=== PATIENT | male | born 1940 | race Caucasian/White ===

== ENCOUNTER 2016-06-22 20:14 | Inpatient (IN) | payer MEDICARE, BC ==
[~2016-06-22] VITALS: Ht 175.3 cm; Wt 83.0 kg
[2016-06-22] MEDS ORDERED: AMLODIPINE BESYL5 MG ORAL (20:20)
[2016-06-22] MEDS ORDERED: LEVOTHYROXINE75 MCG ORAL (20:20)
[2016-06-22] MEDS ORDERED: ASPIRIN81 MG ORAL (20:20)
[2016-06-22] MEDS ORDERED: LEXAPRO20 MG ORAL (20:20)
[2016-06-22] MEDS ORDERED: OMEGA 3 1,0001 EACH PO (20:20)
[2016-06-22] MEDS ORDERED: PRAVACHOL40 MG ORAL (20:20)
[2016-06-22] MEDS ORDERED: DOCUSATE SODIU100 MG ORAL (20:20)
[2016-06-22] MEDS ORDERED: CALCIUM + VITA1 EAC1 PO (20:20)
[2016-06-22] MEDS ORDERED: NABUMETONE500 MG PO (20:20)
[2016-06-22] MEDS ORDERED: CEPHALEXIN250 M2 ORAL (20:20)
[2016-06-22] MEDS ORDERED: GLUCOSAMINE &1 EAC2 PO (20:20)
[2016-06-22] MEDS ORDERED: FLONASE1 SPRAYS NASAL (20:20)
--- NOTE | 2016-06-22 20:38 | Emergency Room Report ---
History of Present Illness General Chief Complaint: Generalized Weakness Source: Patient Present Illness HPI 76 YO M BIBEMS for "weakness". Patient with history of dementia and HTN, DM, HLD, hypothyroid per paperwork. Patient calm, collected. Denies any complaints. Not providing any additional info at this time. Per paperwork, patient on keflex for unknown tx of infection. Allergies: Coded Allergies: No Known Allergies (Unverified , 06/22/16) Patient History Past Medical History: DM, dementia, other - HLD, hypothyroid Past Surgical History: unable to obtain Pertinent Family History: unable to obtain Social History: Denies: alcohol use, drug use, smoking Immunizations: UTD Reviewed Nursing Documentation: PMH: Agreed, PSxH: Agreed Nursing Documentation-PMH Hx Hypertension: Yes Hx Diabetes: Yes Review of Systems All Other Systems: limited - limited d/t age/dementia Physical Exam Vital Signs Date Time Temp Pulse Resp B/P Pulse Ox O2 Delivery O2 Flow Rate FiO2 06/22/16 20:08 98.2 76 18 149/79 90 Room Air Sp02 EP Interpretation: reviewed, normal General Appearance: normal inspection, well appearing, no apparent distress, alert, GCS 15, non-toxic, other - Stoic, hard of hearing Head: normocephalic, atraumatic Eyes: bilateral eye EOMI, bilateral eye PERRL ENT: normal ENT inspection, hearing grossly normal, normal pharynx, no angioedema, normal voice, TMs + canals normal, uvula midline Neck: normal inspection, full range of motion, supple, thyroid normal, no meningismus, no bony tend Respiratory: normal inspection, lungs clear, normal breath sounds, no rhonchi, no respiratory distress, no retraction, no accessory muscle use, no wheezing, speaking full sentences Cardiovascular #1: regular rate, rhythm, no edema Gastrointestinal: normal inspection, normal bowel sounds, non tender, soft, no guarding, no hernia Genitourinary: no CVA tenderness Musculoskeletal: normal inspection, back normal, normal range of motion, Yari' s Sign negative Neurologic: normal inspection, alert, oriented x3, responsive, garment sorter III-XII nml as tested, motor strength/tone normal, speech normal Psychiatric: normal inspection, judgement/insight normal, mood/affect normal Skin: normal inspection, normal color, no rash Lymphatic: normal inspection Medical Decision Making Diagnostic Impression: Primary Impression: Episode of generalized weakness ER Course 76 YO M with weakness. VSS. Afebrile No focal neuro deficits. No systemic symptoms. Patient on Keflex for tx of an unknown infection PLAN Will do septic workup, basic labs, ECG, search for potential cause for infection or metabolic abnormality Endorsed to Dr Hall for ultimate disposition at 930pm Last Vital Signs Date Time Temp Pulse Resp B/P Pulse Ox O2 Delivery O2 Flow Rate FiO2 06/22/16 20:08 98.2 76 18 149/79 90 Room Air VELASQUEZ MCWILLIAMS M.D. Jun 22, 2016 20:38
[2016-06-22 21:15] LABS: BASOPHILS % (AUTO) 1.5 % (0.0-2.0); LYMPHOCYTES % (AUTO) 16.1 % (20.0-45.0); MEAN CORPUSCULAR HEMOGLOBIN 31.3 PG (27.0-31.0); MEAN CORPUSCULAR HGB CONC 32.6 G/DL (32.0-36.0); MEAN CORPUSCULAR VOLUME 96 FL (80-99); MEAN PLATELET VOLUME 7.3 FL (6.5-10.1); MONOCYTES % (AUTO) 10.2 % (1.0-10.0); NEUTROPHILS % (AUTO) 68.1 % (45.0-75.0); PLATELET COUNT 210 K/UL (150-450); RED BLOOD COUNT 4.09 M/UL (4.70-6.10); RED CELL DISTRIBUTION WIDTH 13.3 % (11.6-14.8); WHITE BLOOD COUNT 7.9 K/UL (4.8-10.8)
[2016-06-22 21:19] VITALS: BP 140/65
[2016-06-22 21:27] LABS: ALANINE AMINOTRANSFERASE 10 U/L (3-41); ALBUMIN/GLOBULIN RATIO 1.1 (1.0-2.7); ANION GAP 14 (5-15); ASPARTATE AMINO TRANSFERASE 18 U/L (5-40); CALCIUM 9.3 mg/dL (8.6-10.2); CARBON DIOXIDE 26 mEQ/L (20-30); CHLORIDE 100 mEQ/L (98-107); CREATININE 1.2 mg/dL (0.7-1.2); HEMOLYSIS 13; POTASSIUM 4.2 mEQ/L (3.4-4.9); SODIUM 140 mEQ/L (135-145); TOTAL PROTEIN 5.9 g/dL (6.6-8.7)
[2016-06-22 21:33] LABS: REFLEX LACTIC ACID YES OR NO YES; TROPONIN I 1.35 ng/mL (<=0.30)
[2016-06-22 21:37] LABS: CKMB 3.4 ng/mL (< 6.7)
[2016-06-22 21:39] LABS: APPEARANCE,URINE CLEAR; KETONES,URINE 1+ (NEGATIVE); LEUKOCYTE ESTERASE ,URINE 1+ (NEGATIVE); NITRITE,URINE NEGATIVE (NEGATIVE); PH,URINE 5 (4.5-8.0); PROTEIN,URINE 3+ (NEGATIVE); UROBILINOGEN,URINE NORMAL MG/DL (0.0-1.0)
[2016-06-22 21:42] LABS: ICTOTEST NEGATIVE
[2016-06-22 21:47] LABS: AMORPHOUS SEDIMENT,UR FEW /LPF; BACTERIA,URINE FEW /HPF; RBC,URINE 0-2 /HPF (0 - 0); WBC,URINE 0-2 /HPF (0 - 0)
[2016-06-22] MEDS ORDERED: Heparin 25,000u/D5W 500ml 500 ML IV SCH (22:00)
[2016-06-22] MEDS ORDERED: Heparin 5000 units/ml inj IV ONE (22:00)
[2016-06-22 23:06] VITALS: BP 140/72
[2016-06-23 00:13] VITALS: BP 142/90
[2016-06-23] MEDS ORDERED: Metoprolol 50mg tab ORAL ONE (03:15)
[2016-06-23] MEDS ORDERED: Heparin 25,000u/D5W 500ml 500 ML IV SCH (03:30)
[2016-06-23 04:00] VITALS: BP 128/75
[2016-06-23 05:03] LABS: ALANINE AMINOTRANSFERASE 8 U/L (3-41); ALBUMIN/GLOBULIN RATIO 0.9 (1.0-2.7); ANION GAP 15 (5-15); ASPARTATE AMINO TRANSFERASE 18 U/L (5-40); CALCIUM 8.6 mg/dL (8.6-10.2); CARBON DIOXIDE 23 mEQ/L (20-30); CHLORIDE 104 mEQ/L (98-107); CHOLESTEROL 126 mg/dL (< 200); CHOLESTEROL/HDL RATIO 2.9 (3.3-4.4); HEMOLYSIS 14; LDL CHOLESTEROL (CALC.) 72 mg/dL (60-99); POTASSIUM 3.7 mEQ/L (3.4-4.9); SODIUM 142 mEQ/L (135-145)
[2016-06-23] MEDS: Nitroglycerin 2% oint pkt TOPIC SCH ×4 (06:00→21:20)
[2016-06-23 07:42] LABS: BASOPHILS % (AUTO) 1.3 % (0.0-2.0); EOSINOPHILS % (AUTO) 4.6 % (0.0-3.0); LYMPHOCYTES % (AUTO) 12.2 % (20.0-45.0); MEAN CORPUSCULAR HEMOGLOBIN 31.3 PG (27.0-31.0); MEAN CORPUSCULAR HGB CONC 32.7 G/DL (32.0-36.0); MEAN CORPUSCULAR VOLUME 96 FL (80-99); MEAN PLATELET VOLUME 9.6 FL (6.5-10.1); MONOCYTES % (AUTO) 9.9 % (1.0-10.0); PLATELET COUNT 212 K/UL (150-450); RED BLOOD COUNT 3.86 M/UL (4.70-6.10); RED CELL DISTRIBUTION WIDTH 13.2 % (11.6-14.8); WHITE BLOOD COUNT 7.5 K/UL (4.8-10.8)
[2016-06-23 08:00] VITALS: BP 146/82
[2016-06-23 08:07] LABS: TROPONIN I 1.33 ng/mL (<=0.30)
[2016-06-23] MEDS: Aspirin Baby 81mg ORAL SCH (08:46)
[2016-06-23] MEDS: Docusate 100mg cap ORAL SCH ×2 (08:46→17:41)
[2016-06-23] MEDS: Metoprolol 25mg tab ORAL SCH ×2 (08:46→20:22)
[2016-06-23] MEDS: Flonase Nasal Inhaler 16gm NASAL SCH (08:47)
[2016-06-23] MEDS ORDERED: Cephalexin 250mg Cap ORAL SCH (09:00)
[2016-06-23] MEDS ORDERED: Heparin 5000 units/ml inj IV ONE (10:00)
[2016-06-23] MEDS: Heparin 25,000u/D5W 500ml 500 ML IV SCH ×3 (10:12→21:21)
--- NOTE | 2016-06-23 11:49 | Diagnostic Imaging Report ---
Indications: Shortness of breath Technique: Portable AP chest Findings: Comparison: None Suboptimal inspiration limits evaluation. Cardiac silhouette enlarged. Diffuse bilateral interstitial infiltrates. Blunting of both costophrenic angle suggests pleural effusions. Pulmonary vasculature obscured. Aortic arch calcified. IMPRESSION: Findings most compatible with congestive heart failure Cardiomegaly Aortosclerosis
[2016-06-23] MEDS: NovoLOG Insulin Flexpen SUBQ SCH ×3 (11:57→20:29)
[2016-06-23 12:00] VITALS: BP 125/69
[2016-06-23 12:14] LABS: TROPONIN I 0.99 ng/mL (<=0.30)
--- NOTE | 2016-06-23 12:58 | History and Physical Report ---
DATE OF ADMISSION: 06/22/2016 REASON FOR ADMISSION: Acute UT. HISTORY OF PRESENT ILLNESS: This is a 76-year-old male brought in by ambulance for weakness. The patient with underlying history of dementia and unable to give much in the way in the history. The patient apparently calm and collected, but noted to have a change in condition overall. In the emergency room, the patient was evaluated, was noted to have clinically elevated troponin. The patient denies any chest pain at present. He is significantly confused. He is comfortable at present and had been admitted for further cardiac workup. Cardiology has been notified. The patient as noted medical records as well reviewed. The patient apparently treated with Keflex for unknown reason, the patient appears to be nontoxic. PAST MEDICAL HISTORY: Diabetes, dementia, and hypothyroidism. The patient also with history of hypertension. MEDICATIONS: Reviewed. ALLERGIES: Reviewed SOCIAL HISTORY: Nonsmoker. Nondrinker. The patient is retired, demented, unable to care for his own needs. REVIEW OF SYSTEMS: Review of systems difficult to obtain. The patient is not reliable at present. PHYSICAL EXAMINATION: GENERAL: This is a well-developed male and comfortable, in no distress. VITAL SIGNS: Temperature 97.5 degrees, pulse 66, respirations 24, blood pressure is 146/80, and the patient is on room air. HEENT: Fairly negative. Extraocular movements are grossly intact. Oropharynx is moist. NECK: Supple. No jugular venous distention. LUNGS: Otherwise, clear and symmetric. No rhonchi or wheezes. CARDIAC: Normal S1 and S2. Regular rate and rhythm without murmurs or gallops. ABDOMEN: Soft and nontender. Mildly obese. EXTREMITIES: No cyanosis or clubbing. There is 1+ pitting edema. NEUROLOGIC: Grossly nonfocal, able to move all extremities, able to swallow. Speech is poor. LABORATORY AND DIAGNOSTIC DATA: Lab data reviewed. BUN 34 and creatinine 1. Troponin is 1.35, second 1.33. Albumin is 2.9. The patient Hematology, white count 7.5, hemoglobin 12.1, and hematocrit 36.9. The chest x-ray reviewed. The EKG reviewed. IMPRESSION: 1. Acute myocardial infarction. 2. Elevated troponin. 3. Severe protein-calorie malnutrition. 4. History of hypertension. 5. History of diabetes. 6. History of dementia. 7. Chronic encephalopathy. RECOMMENDATIONS: Serial troponins, nitrate, aspirin, beta-blockers. Continue with home medication. Cardiology evaluation. Monitor clinically for further changes and support as needed. Continue further cardiac workup. Pending evaluation by Cardiology. The patient is otherwise stable for current management at present. Arsh Natarajan M.D. DR: Ruel JOB#: [id number] CC: CLEMENTE
[2016-06-23 16:00] VITALS: BP 131/79
[2016-06-23 19:53] LABS: TROPONIN I 1.06 ng/mL (<=0.30)
[2016-06-23 20:00] VITALS: BP 145/86
[2016-06-23] MEDS ORDERED: Zolpidem 5mg tab ORAL PRN (21:00)
[2016-06-23] MEDS: KCl 10% 20 mEq/15ml liquid NG SCH (22:57)
--- NOTE | 2016-06-23 23:38 | Consultation ---
DATE OF CONSULTATION: 06/22/2016 CARDIOLOGY CONSULTATION REQUESTING PHYSICIAN: Arsh Natarajan M.D. REASON FOR CONSULTATION: Elevated troponin level. HISTORY OF PRESENT ILLNESS: This is a 76-year-old male, who resides in an assisted living facility. He was brought into the emergency room by paramedics for evaluation of weakness. The patient is a poor historian and has an underlying dementia. He did not have any chest pain, shortness of breath noted, or palpitations. PAST MEDICAL HISTORY: Type 2 diabetes mellitus, cerebrovascular disease, hyperlipidemia, hypothyroidism, and hypertension. ALLERGIES: None known. MEDICATIONS: Prior to admission, reviewed and reconciled. SOCIAL HISTORY: No record of smoking or alcohol use. REVIEW OF SYSTEMS: Cannot be reliably obtained from the patient. Pertinent data from other historian is outlined above. PHYSICAL EXAMINATION: GENERAL: The patient is afebrile. VITAL SIGNS: Blood pressure 149/79, pulse 76, and respirations 18. HEENT: Normocephalic and atraumatic. Conjunctivae are pink. Oropharynx is clear. Mucous membranes moist. NECK: Supple. JVP is slightly elevated. LUNGS: Few rales. CARDIAC: Regular rhythm and rate. Normal S1 and increased splitting S2. A 1/6 systolic apical murmur. ABDOMEN: Soft and nontender. No guarding or rebound. EXTREMITIES: Good pulses. Trace dependent edema. NEUROLOGIC: Moderate cognitive impairment but nonfocal with regard to motor examination and sensation. LABORATORY AND DIAGNOSTIC DATA: EKG revealed sinus rhythm with right bundle-branch block. Chest x-ray reveals pulmonary venous congestion/congestive heart failure. Laboratories are notable for potassium 4.2, BUN 36, and creatinine 1.2. Lactic acid is 2.4. Troponin is 1.35. Albumin is 3.2. IMPRESSION: 1. Acute myocardial infarction. 2. Right bundle-branch block. 3. Lactic acidosis. 4. Type 2 diabetes mellitus with hyperglycemia. 5. Acute diastolic congestive heart failure. 6. Prerenal azotemia. 7. Mild protein-calorie malnutrition. 8. Dementia with probable component of delirium. PLAN: 1. Cardiac monitoring. 2. Anti-platelet and anticoagulation. 3. Check lipid panel. 4. Beta-blockade. 5. Titrate antihypertensive regimen. 6. Serial troponin levels. 7. Insulin coverage by sliding scale. 8. We will try to expand database. We will likely proceed with assessment of coronary flow reserve if unless deterioration of condition will warrant more urgent coronary angiography. Dimas Dick M.D. DR: EDUARD JOB#: [id number] CC:
[2016-06-24] VITALS: BP 142/80
--- NOTE | 2016-06-24 00:28 | Progress Note ---
DATE: 06/23/2016 CARDIOLOGY PROGRESS NOTE: SUBJECTIVE: The patient continues to have no complaints of chest pain or shortness of breath. He is confused and withdrawn and is an unreliable historian. He remains on anti-lipid therapy, oral anti-platelet therapy with aspirin, and full anticoagulation with heparin drip. He is also on a beta-yu. OBJECTIVE: VITAL SIGNS: Blood pressure 145/86, heart rate 67, and respiratory rate 17. NECK: Supple. Jugular venous pressure elevated. LUNGS: Few rales. CARDIAC: Regular rhythm and rate. Normal S1 and increased splitting S2. A 1/6 systolic apical murmur. ABDOMEN: Soft. EXTREMITIES: A 1+ dependent edema. LABORATORY DATA: Troponin 1.06. BUN 34, creatinine 1, and potassium 3.7. Albumin 2.9. LDL cholesterol 72. TSH 2.08. IMPRESSION: 1. Acute myocardial infarction. 2. Mild to moderate protein calorie malnutrition. Favorable lipid parameters on statin drug. 3. Dementia with delirium. 4. Acute on chronic diastolic congestive heart failure. PLAN: Await echocardiogram. Diuresis. Titrate antianginal regimen. Add angiotensin-converting enzyme inhibitor. Consider discontinuation of heparin following review of echocardiogram. Trending of natriuretic peptide. Plan to help diuretic regimen. 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 Dimas Dick M.D. DR: Guillermina JOB#: [id number] CC:
[2016-06-24] MEDS ORDERED: Heparin 5000 units/ml inj IV ONE (00:30)
[2016-06-24] MEDS: Heparin 25,000u/D5W 500ml 500 ML IV SCH ×2 (00:37→20:10)
[2016-06-24 04:00] VITALS: BP 121/74
[2016-06-24] MEDS: NovoLOG Insulin Flexpen SUBQ SCH ×4 (06:30→21:19)
[2016-06-24] MEDS: Nitroglycerin 2% oint pkt TOPIC SCH ×3 (06:30→22:14)
[2016-06-24 06:52] LABS: BASOPHILS % (AUTO) 1.2 % (0.0-2.0); EOSINOPHILS % (AUTO) 1.9 % (0.0-3.0); LYMPHOCYTES % (AUTO) 15.7 % (20.0-45.0); MEAN CORPUSCULAR HEMOGLOBIN 32.3 PG (27.0-31.0); MEAN CORPUSCULAR HGB CONC 34.5 G/DL (32.0-36.0); MEAN CORPUSCULAR VOLUME 94 FL (80-99); MONOCYTES % (AUTO) 9.5 % (1.0-10.0); NEUTROPHILS % (AUTO) 71.8 % (45.0-75.0); PLATELET COUNT 229 K/UL (150-450); RED BLOOD COUNT 3.67 M/UL (4.70-6.10); RED CELL DISTRIBUTION WIDTH 12.9 % (11.6-14.8); WHITE BLOOD COUNT 9.5 K/UL (4.8-10.8)
[2016-06-24 07:14] LABS: ALANINE AMINOTRANSFERASE 11 U/L (3-41); ALBUMIN/GLOBULIN RATIO 0.9 (1.0-2.7); ANION GAP 14 (5-15); ASPARTATE AMINO TRANSFERASE 15 U/L (5-40); CALCIUM 8.9 mg/dL (8.6-10.2); CARBON DIOXIDE 24 mEQ/L (20-30); CHLORIDE 104 mEQ/L (98-107); HEMOLYSIS 4; POTASSIUM 4.3 mEQ/L (3.4-4.9); SODIUM 142 mEQ/L (135-145)
[2016-06-24 07:33] LABS: TROPONIN I 0.94 ng/mL (<=0.30)
[2016-06-24 08:00] VITALS: BP 84/64
--- NOTE | 2016-06-24 08:16 | General Progress Note ---
Assessment/Plan Assessment/Plan IMPRESSION: 1. Acute myocardial infarction. 2. Elevated troponin. 3. Severe protein-calorie malnutrition. 4. History of hypertension. 5. History of diabetes. 6. History of dementia. 7. Chronic encephalopathy. PLAN monitor chest xr troponin trend noted cards rx and clearance in CATHERINE ?tele monitor clinically ? cardiac stress impression, plan, and exam edited and reviewed in detail care discussed with RN Subjective Allergies: Coded Allergies: No Known Allergies (Unverified , 06/22/16) Subjective no distress d/w cardiology appreciate care Objective Last 24 Hour Vital Signs Date Time Temp Pulse Resp B/P Pulse Ox O2 Delivery O2 Flow Rate FiO2 06/24/16 06:30 121/74 06/24/16 04:07 75 06/24/16 04:00 97.9 73 22 121/74 94 Nasal Cannula 2.0 06/24/16 00:00 97.4 69 22 142/80 94 Nasal Cannula 2.0 06/23/16 23:48 72 06/23/16 22:18 70 32 92 Facial 2.0 28 06/23/16 21:20 145/68 06/23/16 20:22 66 145/86 06/23/16 20:00 67 06/23/16 20:00 97.9 17 145/86 96 Nasal Cannula 2.0 06/23/16 16:00 97.5 63 16 131/79 92 Nasal Cannula 2.0 06/23/16 16:00 65 06/23/16 14:18 125/69 06/23/16 12:00 97.5 62 19 125/69 93 Nasal Cannula 2.0 06/23/16 12:00 62 06/23/16 08:47 60 146/80 06/23/16 08:46 60 146/80 Intake and Output 06/23/16 06/24/16 19:00 07:00 Intake Total 736.461 ml 328.03 ml Output Total 800 ml Balance 736.461 ml -471.97 ml Intake Oral 500 ml 150 ml IV Total 236.461 ml 178.03 ml Output Urine Total 800 ml # Voids 4 1 # Bowel Movements 2 2 Laboratory Tests 06/23/16 11:45: Troponin I 0.99*H 06/23/16 15:50: Activated Partial Thromboplast Time 106H 06/23/16 19:00: Troponin I 1.06*H 06/23/16 23:20: Activated Partial Thromboplast Time 52H 06/24/16 06:30: White Blood Count 9.5, Red Blood Count 3.67L, Hemoglobin 11.9L, Hematocrit 34.3L , Mean Corpuscular Volume 94, Mean Corpuscular Hemoglobin 32.3H, Mean Corpuscular Hemoglobin Concent 34.5, Red Cell Distribution Width 12.9, Platelet Count 229, Mean Platelet Volume 8.0, Neutrophils (%) (Auto) 71.8, Lymphocytes (% ) (Auto) 15.7L, Monocytes (%) (Auto) 9.5, Eosinophils (%) (Auto) 1.9, Basophils (%) (Auto) 1.2, Activated Partial Thromboplast Time 70H, Sodium Level 142, Potassium Level 4.3, Chloride Level 104, Carbon Dioxide Level 24, Anion Gap 14, Blood Urea Nitrogen 33H, Creatinine 1.0, Estimat Glomerular Filtration Rate , Glucose Level 158H, Calcium Level 8.9, Total Bilirubin 0.4, Aspartate Amino Transf (AST/SGOT) 15, Alanine Aminotransferase (ALT/SGPT) 11, Alkaline Phosphatase 89, Troponin I 0.94*H, Pro-B-Type Natriuretic Peptide 63548H, Total Protein 6.0L, Albumin 2.9L, Globulin 3.1, Albumin/Globulin Ratio 0.9L Height (Feet): 5 Height (Inches): 9.00 Weight (Pounds): 185 Objective GENERAL: This is a well-developed male and comfortable, in no distress. confused HEENT: Fairly negative. Extraocular movements are grossly intact. Oropharynx is moist. NECK: Supple. No jugular venous distention. LUNGS: Otherwise, clear and symmetric. No rhonchi or wheezes. some crackles CARDIAC: Normal S1 and S2. Regular rate and rhythm without murmurs or gallops. ABDOMEN: Soft and nontender. Mildly obese. EXTREMITIES: No cyanosis or clubbing. There is 1+ pitting edema. with minimal change NEUROLOGIC: Grossly nonfocal, able to move all extremities, able to swallow. Speech is poor. JOSE LEO Jun 24, 2016 08:15
[2016-06-24] MEDS: Metoprolol 25mg tab ORAL SCH (08:37)
[2016-06-24] MEDS: Flonase Nasal Inhaler 16gm NASAL SCH ×2 (08:37→08:43)
[2016-06-24] MEDS: Docusate 100mg cap ORAL SCH ×4 (08:37→18:00)
[2016-06-24] MEDS: KCl 10% 20 mEq/15ml liquid NG SCH ×3 (08:37→08:43)
[2016-06-24] MEDS: Aspirin Baby 81mg ORAL SCH ×3 (08:37→08:43)
[2016-06-24] MEDS ORDERED: Lisinopril 10mg tab ORAL SCH (09:00)
[2016-06-24 12:00] VITALS: BP 122/71
[2016-06-24 16:00] VITALS: BP 140/85
[2016-06-24 20:00] VITALS: BP 123/86
[2016-06-24] MEDS ORDERED: Influenza Virus Vaccine 0.5ml IM ONE (20:30)
[2016-06-24 21:11] LABS: ANION GAP 15 (5-15); CALCIUM 8.7 mg/dL (8.6-10.2); CARBON DIOXIDE 22 mEQ/L (20-30); CHLORIDE 103 mEQ/L (98-107); CREATININE 1.1 mg/dL (0.7-1.2); HEMOLYSIS 17; POTASSIUM 3.7 mEQ/L (3.4-4.9); SODIUM 140 mEQ/L (135-145)
[2016-06-24] MEDS: Metoprolol 50mg tab ORAL SCH (21:16)
[2016-06-24 21:33] LABS: CKMB 2.4 ng/mL (< 6.7)
[2016-06-24] MEDS ORDERED: Pneumococcal Vaccine 25mcg/0.5ml IM ONE (22:00)
[2016-06-25] VITALS: BP 128/80
--- NOTE | 2016-06-25 02:08 | Progress Note ---
DATE: 06/24/2016 CARDIOLOGY PROGRESS NOTE SUBJECTIVE: The patient without distress. Case was discussed with his daughter. The patient appears to be closer to his baseline level of mentation. He has not had any complaints of chest pain or shortness of breath, although his breathing is more heavier than usual according to his daughter. OBJECTIVE: VITAL SIGNS: Blood pressure 121/74, pulse 73, respirations 22, afebrile. Monitored rhythm, sinus. HEENT: Conjunctivae is pink. Oropharynx is clear. NECK: supple. Jugular venous pressure elevated. LUNGS: With few rales. CARDIAC: Regular rhythm and rate. Normal S1 and S2 with a fourth heart sound. ABDOMEN: Soft and nontender. EXTREMITIES: Trace edema. LABORATORY DATA: White count 9.5 and hemoglobin 11.9. Troponin decreasing to 0.9. Pro-natriuretic peptide over 10,000. Albumin 2.9. BUN 27 and creatinine 1.1. IMPRESSION: 1. Acute myocardial infarction. 2. Acute on chronic diastolic congestive heart failure. 3. Moderate protein-calorie malnutrition. 4. Cerebrovascular disease with dementia. PLAN: 1. Diuresis. 2. Optimize anti-anginal and anti-failure regimen. 3. Cardiac monitoring. 4. Anti-platelet therapy. 5. We will consider noninvasive assessment of coronary flow reserve. 6. Per family request, the patient may be transferred to [facility] if bed is available. Dimas Dick M.D. DR: JANELL JOB#: [id number] CC:
[2016-06-25 04:00] VITALS: BP 121/76
[2016-06-25 06:01] LABS: BASOPHILS % (AUTO) 1.1 % (0.0-2.0); EOSINOPHILS % (AUTO) 2.2 % (0.0-3.0); LYMPHOCYTES % (AUTO) 8.1 % (20.0-45.0); MEAN CORPUSCULAR HEMOGLOBIN 32.1 PG (27.0-31.0); MEAN CORPUSCULAR HGB CONC 33.6 G/DL (32.0-36.0); MEAN CORPUSCULAR VOLUME 95 FL (80-99); MEAN PLATELET VOLUME 9.2 FL (6.5-10.1); MONOCYTES % (AUTO) 7.9 % (1.0-10.0); NEUTROPHILS % (AUTO) 80.6 % (45.0-75.0); PLATELET COUNT 233 K/UL (150-450); RED BLOOD COUNT 3.91 M/UL (4.70-6.10); RED CELL DISTRIBUTION WIDTH 12.8 % (11.6-14.8); WHITE BLOOD COUNT 8.2 K/UL (4.8-10.8)
[2016-06-25] MEDS: Nitroglycerin 2% oint pkt TOPIC SCH ×3 (06:07→22:29)
[2016-06-25] MEDS: NovoLOG Insulin Flexpen SUBQ SCH ×4 (06:09→21:34)
[2016-06-25 06:43] LABS: ALANINE AMINOTRANSFERASE 12 U/L (3-41); ALBUMIN/GLOBULIN RATIO 0.9 (1.0-2.7); ANION GAP 15 (5-15); ASPARTATE AMINO TRANSFERASE 21 U/L (5-40); CALCIUM 8.7 mg/dL (8.6-10.2); CARBON DIOXIDE 24 mEQ/L (20-30); CHLORIDE 103 mEQ/L (98-107); CREATININE 1.1 mg/dL (0.7-1.2); HEMOLYSIS 20; POTASSIUM 4.2 mEQ/L (3.4-4.9); SODIUM 142 mEQ/L (135-145); TOTAL PROTEIN 6.2 g/dL (6.6-8.7)
--- NOTE | 2016-06-25 07:54 | Cardiology Report ---
APPROVED REPORT EKG Measurement Heart [id number] CO [id number] [id number] Normal sinus rhythm Right bundle branch block Cannot rule out Inferior infarct, age undetermined Abnormal ECG
[2016-06-25 08:00] VITALS: BP 132/89
[2016-06-25] MEDS: Aspirin Baby 81mg ORAL SCH (08:48)
[2016-06-25] MEDS: Docusate 100mg cap ORAL SCH (08:49)
[2016-06-25] MEDS: Lisinopril 10mg tab ORAL SCH (08:49)
[2016-06-25] MEDS: Metoprolol 50mg tab ORAL SCH ×2 (08:49→21:00)
[2016-06-25] MEDS: Flonase Nasal Inhaler 16gm NASAL SCH (08:51)
[2016-06-25] MEDS: Docusate 100mg tablet GT SCH ×2 (09:30→17:42)
--- NOTE | 2016-06-25 09:38 | General Progress Note ---
Assessment/Plan Assessment/Plan IMPRESSION: 1. Acute myocardial infarction. 2. Elevated troponin. 3. Severe protein-calorie malnutrition. 4. History of hypertension. 5. History of diabetes. 6. History of dementia. 7. Chronic encephalopathy. PLAN monitor chest xr; will order troponin trend noted cards rx and clearance possible transfer to [facility] monitor clinically ? cardiac stress no acute findings overnight impression, plan, and exam edited and reviewed in detail care discussed with RN Subjective Allergies: Coded Allergies: No Known Allergies (Unverified , 06/22/16) Subjective no distress d/w cardiology d/w daughter; wants patient transferred to [facility] care Objective Last 24 Hour Vital Signs Date Time Temp Pulse Resp B/P Pulse Ox O2 Delivery O2 Flow Rate FiO2 06/25/16 08:49 143/81 06/25/16 08:49 60 143/81 06/25/16 08:48 60 143/81 06/25/16 08:00 73 06/25/16 08:00 96.4 68 18 132/89 93 Nasal Cannula 2.0 06/25/16 07:58 60 19 Nasal Cannula 2.0 28 06/25/16 07:05 95 Nasal Cannula 2.0 28 06/25/16 07:05 Nasal Cannula 2.0 28 06/25/16 06:07 143/81 06/25/16 04:00 98.4 64 32 121/76 95 Nasal Cannula 2.0 06/25/16 04:00 60 06/25/16 00:00 97.5 71 20 128/80 92 Room Air 06/25/16 00:00 81 06/24/16 22:14 130/60 06/24/16 21:16 90 123/86 06/24/16 20:00 83 06/24/16 20:00 97.5 90 18 123/86 98 Nasal Cannula 2.0 06/24/16 17:23 Nasal Cannula 2.0 28 06/24/16 17:23 92 Nasal Cannula 2.0 28 06/24/16 16:46 140/85 06/24/16 16:00 73 06/24/16 16:00 97.9 79 18 140/85 93 Nasal Cannula 2.0 06/24/16 12:00 73 06/24/16 12:00 98.1 72 20 122/71 93 Nasal Cannula 2.0 Intake and Output 06/24/16 06/25/16 19:00 07:00 Intake Total 352.56 ml 481.30 ml Balance 352.56 ml 481.30 ml Intake Oral 250 ml IV Total 277.56 ml 231.30 ml Other 75 ml # Voids 4 5 # Bowel Movements 2 1 Laboratory Tests 06/24/16 19:50: Sodium Level 140, Potassium Level 3.7, Chloride Level 103, Carbon Dioxide Level 22, Anion Gap 15, Blood Urea Nitrogen 27H, Creatinine 1.1, Estimat Glomerular Filtration Rate , Glucose Level 147H, Calcium Level 8.7, Total Creatine Kinase 104, Creatine Kinase MB 2.4, Creatine Kinase MB Relative Index 2.3 06/25/16 04:00: Sodium Level 142, Potassium Level 4.2, Chloride Level 103, Carbon Dioxide Level 24, Anion Gap 15, Blood Urea Nitrogen 28H, Creatinine 1.1, Estimat Glomerular Filtration Rate , Glucose Level 193H, Calcium Level 8.7, White Blood Count 8.2, Red Blood Count 3.91L, Hemoglobin 12.5L, Hematocrit 37.2L, Mean Corpuscular Volume 95, Mean Corpuscular Hemoglobin 32.1H, Mean Corpuscular Hemoglobin Concent 33.6, Red Cell Distribution Width 12.8, Platelet Count 233, Mean Platelet Volume 9.2, Neutrophils (%) (Auto) 80.6H, Lymphocytes (%) (Auto) 8.1L, Monocytes (%) (Auto) 7.9, Eosinophils (%) (Auto) 2.2, Basophils (%) (Auto) 1.1, Activated Partial Thromboplast Time 67H, Magnesium Level 2.0, Total Bilirubin 0.4, Aspartate Amino Transf (AST/SGOT) 21, Alanine Aminotransferase (ALT/SGPT) 12, Alkaline Phosphatase 91, Total Protein 6.2L, Albumin 3.0L, Globulin 3.2, Albumin/Globulin Ratio 0.9L Height (Feet): 5 Height (Inches): 9.00 Weight (Pounds): 185 Objective GENERAL: This is a well-developed male and comfortable, in no distress. confused HEENT: Fairly negative. Extraocular movements are grossly intact. Oropharynx is moist. NECK: Supple. No jugular venous distention. LUNGS: Otherwise, clear and symmetric. No rhonchi or wheezes. some crackles CARDIAC: Normal S1 and S2. Regular rate and rhythm without murmurs or gallops. ABDOMEN: Soft and nontender. Mildly obese. EXTREMITIES: No cyanosis or clubbing. There is 1+ pitting edema. with minimal change NEUROLOGIC: Grossly nonfocal, able to move all extremities, able to swallow. Speech is poor. JOSE LEO Jun 25, 2016 09:38
--- NOTE | 2016-06-25 11:08 | Diagnostic Imaging Report ---
Indication: Dyspnea Comparison: 06/22/16 A single view chest radiograph was obtained. Findings: Patchy or space disease demonstrated. This is seen in the context of cardiomegaly and pulmonary vascular redistribution and prominence. Similar findings seen previously but the degree of edema appears worse. There maybe a left pleural effusion as well. Impression: Worsening CHF. Suspected left pleural effusion
[2016-06-25 12:00] VITALS: BP 114/69
[2016-06-25 16:00] VITALS: BP 119/66
[2016-06-25] MEDS: Heparin 25,000u/D5W 500ml 500 ML IV SCH (18:43)
[2016-06-25 19:00] VITALS: BP 121/62
[2016-06-26] VITALS (7 sets, daily range): BP systolic 104–132; BP diastolic 51–73
--- NOTE | 2016-06-26 02:58 | Progress Note ---
DATE: 06/25/2016 CARDIOLOGY PROGRESS NOTE SUBJECTIVE: Case was discussed with the patient's daughter last night. Today, the patient is without any shortness of breath. He continues to have some heavy breathing according to his daughter. OBJECTIVE: VITAL SIGNS: Blood pressure 143/81, pulse 60, respirations 18. NECK: Jugular venous pressure elevated. LUNGS: With basilar rales. CARDIAC: Regular rhythm rate. Normal S1 and S2. A 1/6 systolic murmur in the lower left sternal border. ABDOMEN: Soft. EXTREMITIES: Trace edema. LABORATORY AND DIAGNOSTIC DATA: Monitor reveals sinus rhythm with occasional PACs. Chest x-ray reveals worsening pulmonary venous congestion. Labs are pending. IMPRESSION: 1. Acute myocardial infarction, [id number] diastolic congestive heart failure. 2. Hypertensive heart disease. 3. Type 2 diabetes mellitus. 4. Dementia. 5. Severe protein-calorie malnutrition. PLAN: 1. Nasal oxygen. 2. Antiplatelet therapy. 3. Advance anti-failure regimen. 4. Advanced diuresis. 5. Continue nitrates. The patient's daughter is intent on transferring the patient to [facility]. He is on the list for transfer, although without a definitive catheterization date that is urgent. The transfer is likely to be delayed due to lack of bed availability. I have outlined the care plan at this time. Once optimized, if transfer is not possible, myocardial perfusion scan will be performed to assess coronary flow reserves. Margret Gentile JOB#: [id number] CC:
[2016-06-26 06:28] LABS: BASOPHILS % (AUTO) 1.1 % (0.0-2.0); EOSINOPHILS % (AUTO) 4.9 % (0.0-3.0); LYMPHOCYTES % (AUTO) 17.3 % (20.0-45.0); MEAN CORPUSCULAR HGB CONC 33.9 G/DL (32.0-36.0); MEAN CORPUSCULAR VOLUME 95 FL (80-99); MEAN PLATELET VOLUME 9.1 FL (6.5-10.1); MONOCYTES % (AUTO) 9.5 % (1.0-10.0); NEUTROPHILS % (AUTO) 67.3 % (45.0-75.0); PLATELET COUNT 218 K/UL (150-450); RED BLOOD COUNT 3.57 M/UL (4.70-6.10); RED CELL DISTRIBUTION WIDTH 12.9 % (11.6-14.8); WHITE BLOOD COUNT 7.5 K/UL (4.8-10.8)
[2016-06-26 06:39] LABS: ANION GAP 12 (5-15); CALCIUM 8.5 mg/dL (8.6-10.2); CARBON DIOXIDE 28 mEQ/L (20-30); CHLORIDE 100 mEQ/L (98-107); CREATININE 1.2 mg/dL (0.7-1.2); HEMOLYSIS 3; POTASSIUM 3.7 mEQ/L (3.4-4.9); SODIUM 140 mEQ/L (135-145)
[2016-06-26] MEDS: Nitroglycerin 2% oint pkt TOPIC SCH ×3 (06:42→22:08)
[2016-06-26] MEDS: NovoLOG Insulin Flexpen SUBQ SCH ×4 (06:43→21:00)
[2016-06-26 07:15] LABS: TROPONIN I < 0.30 ng/mL (<=0.30)
[2016-06-26] MEDS: Docusate 100mg tablet GT SCH ×2 (08:31→18:00)
[2016-06-26] MEDS: Aspirin Baby 81mg ORAL SCH (08:32)
[2016-06-26] MEDS: Lisinopril 10mg tab ORAL SCH (08:32)
[2016-06-26] MEDS: Metoprolol 50mg tab ORAL SCH ×2 (08:32→21:00)
[2016-06-26] MEDS: Flonase Nasal Inhaler 16gm NASAL SCH (08:34)
[2016-06-26] MEDS ORDERED: Heparin 5000 units/ml inj IV ONE (10:30)
[2016-06-26] MEDS: Heparin 25,000u/D5W 500ml 500 ML IV SCH ×2 (11:03→14:54)
--- NOTE | 2016-06-26 19:20 | General Progress Note ---
Assessment/Plan Assessment/Plan IMPRESSION: 1. Acute myocardial infarction. 2. Elevated troponin. 3. Severe protein-calorie malnutrition. 4. History of hypertension. 5. History of diabetes. 6. History of dementia. 7. Chronic encephalopathy. PLAN monitor chest xr; now worse remains stable on 2 liters oxygen troponin trend noted and now normal cards rx needs cath possible transfer to [facility] monitor clinically bed located at [facility] transfer tonight cleared by cardiology impression, plan, and exam edited and reviewed in detail care discussed with RN Subjective ROS Limited/Unobtainable: Yes Allergies: Coded Allergies: No Known Allergies (Unverified , 06/22/16) Subjective no distress d/w cardiology d/w daughter; wants patient transferred to [facility] d/w transfer center appreciate care Objective Last 24 Hour Vital Signs Date Time Temp Pulse Resp B/P Pulse Ox O2 Delivery O2 Flow Rate FiO2 06/26/16 19:07 96 Nasal Cannula 2.0 28 06/26/16 19:07 68 22 Nasal Cannula 2.0 28 06/26/16 19:07 Nasal Cannula 2.0 28 06/26/16 16:00 97.5 58 18 106/51 95 Nasal Cannula 2.0 06/26/16 14:30 114/65 06/26/16 12:00 59 06/26/16 12:00 96.8 76 21 114/65 94 Nasal Cannula 2.0 06/26/16 09:09 Nasal Cannula 3.0 06/26/16 08:32 132/73 06/26/16 08:32 96 132/73 06/26/16 08:31 96 132/73 06/26/16 08:00 62 06/26/16 08:00 97.2 92 20 132/73 94 Room Air 06/26/16 07:08 92 Nasal Cannula 3.0 06/26/16 07:08 72 20 Nasal Cannula 3.0 06/26/16 06:42 128/69 06/26/16 04:30 71 25 95 Facial 4.0 36 06/26/16 04:00 98.4 64 20 119/73 97 Bi-pap 06/26/16 04:00 58 06/26/16 03:04 68 24 96 Facial 4.0 36 06/26/16 00:49 70 23 97 Facial 4.0 36 06/26/16 00:00 97.4 64 20 125/67 96 Bi-pap 06/26/16 00:00 70 06/25/16 22:29 118/64 06/25/16 21:27 60 20 98 Facial 4.0 36 06/25/16 21:00 58 112/60 06/25/16 20:30 59 22 95 4.0 36 06/25/16 20:00 Nasal Cannula 3.0 32 06/25/16 20:00 92 Nasal Cannula 3.0 32 06/25/16 20:00 59 22 Nasal Cannula 3.0 32 06/25/16 20:00 60 Intake and Output 06/25/16 06/26/16 19:00 07:00 Intake Total 94.29 ml 418.8 ml Balance 94.29 ml 418.8 ml Intake Oral 120 ml IV Total 94.29 ml 298.8 ml # Voids 1 8 # Bowel Movements 1 Laboratory Tests 06/26/16 04:50: White Blood Count 7.5, Red Blood Count 3.57L, Hemoglobin 11.4L, Hematocrit 33.8L , Mean Corpuscular Volume 95, Mean Corpuscular Hemoglobin 32.0H, Mean Corpuscular Hemoglobin Concent 33.9, Red Cell Distribution Width 12.9, Platelet Count 218, Mean Platelet Volume 9.1, Neutrophils (%) (Auto) 67.3, Lymphocytes (% ) (Auto) 17.3L, Monocytes (%) (Auto) 9.5, Eosinophils (%) (Auto) 4.9H, Basophils (%) (Auto) 1.1, Activated Partial Thromboplast Time 59H, Sodium Level 140, Potassium Level 3.7, Chloride Level 100, Carbon Dioxide Level 28, Anion Gap 12, Blood Urea Nitrogen 32H, Creatinine 1.2, Estimat Glomerular Filtration Rate , Glucose Level 153H, Calcium Level 8.5L, Troponin I < 0.30, Pro-B-Type Natriuretic Peptide 7311H Height (Feet): 5 Height (Inches): 9.00 Weight (Pounds): 185 Objective GENERAL: This is a well-developed male and comfortable, in no distress. confused HEENT: Fairly negative. Extraocular movements are grossly intact. Oropharynx is moist. NECK: Supple. No jugular venous distention. LUNGS: Otherwise, clear and symmetric. No rhonchi or wheezes. worsening crackles CARDIAC: Normal S1 and S2. Regular rate and rhythm without murmurs or gallops. ABDOMEN: Soft and nontender. Mildly obese. EXTREMITIES: No cyanosis or clubbing. There is 1+ pitting edema. with minimal change NEUROLOGIC: Grossly nonfocal, able to move all extremities, able to swallow. Speech is poor. more withdrawn JOSE LEO Jun 26, 2016 19:20
--- NOTE | 2016-06-26 22:50 | Progress Note ---
DATE: 06/26/2016 CARDIOLOGY PROGRESS NOTE SUBJECTIVE: The patient is seen and evaluated with daughterAditi at the bedside. The patient is awake, alert, and tolerating oral intake. No chest pain or shortness of breath. His daughter concurs that his respiratory breathing status has improved. OBJECTIVE: VITAL SIGNS: Blood pressure 114/65, pulse 76, respiratory rate 21. NECK: Jugular venous pressure is slightly elevated. LUNGS: Few rales. CARDIAC: Regular rhythm and rate. Normal S1, S2 with a fourth heart sound and a 1/6 apical murmur. ABDOMEN: Soft. EXTREMITIES: With trace dependent edema. LABORATORY DATA: White count 7.5 and hemoglobin 11.4. Sodium 140, potassium 3.7, bicarbonate 28, BUN 32, and creatinine 1.2. Troponin is now negative and pro natriuretic peptide has decreased to 7300. IMPRESSION: 1. Acute myocardial infarction. 2. Acute diastolic congestive heart failure. 3. Underlying dementia. 4. Chronic prerenal azotemia, mild due to diuresis. 5. Premature atrial contractions. PLAN: 1. Continue cautious diuresis, titration of anti-failure regimen and anti-platelet therapy. 2. Discontinue heparin. 3. Transfer to [facility] for cardiac catheterization and completion of care plan. Dimas Dick M.D. : ANIBAL JOB#: [id number] CC:
--- NOTE | 2016-06-30 09:29 | Discharge Summary ---
Discharge Summary Hospital Course Date of Admission Jun 22, 2016 at 22:38 Date of Discharge Jun 27, 2016 at 00:28 Admitting Diagnosis weakness HPI Jacky Jarquin is a 76 year old male who was admitted on Jun 22, 2016 at 22:38 for Weakness Hospital Course dc summary [id number] Discharge Condition Upon Discharge: stable Discharge Disposition Patient was discharged to [facility] for cardiac cath Discharge Diagnoses: Discharge Instructions Discharge Instructions Special Instructions I have been assigned to complete a D/C Summary on this account. I was not involved in the patient management Cornelia Teran NP (V[place]tein) Jun 30, 2016 09:29
--- NOTE | 2016-07-01 02:08 | Discharge Summary 2 SIG ---
DATE OF ADMISSION: 06/22/2016 DATE OF DISCHARGE: 06/27/2016 REASON FOR ADMISSION: 76 years old male was brought in by ambulance due to the episodes of generalized weakness. The patient with underlying history of dementia, hypertension, diabetes, and hypothyroidism. The patient did not have any complaint. No gross focal neurologic deficits noted, initially elevated lactic acid. The patient was afebrile, pulse oximetry on room air was 90%, blood pressure was 149/79. Septic workup initiated to look for potential cause of infection or metabolic abnormality. Chest x-ray revealed cardiomegaly and findings most compatible with congestive heart failure. Laboratory work revealed elevated lactic acid of 2.4. Troponin came up positive 1.35. EKG revealed right bundle-branch block, normal sinus rhythm, possible inferior infarct. The patient was admitted to the telemetry floor. ADMITTING DIAGNOSES: 1. Acute myocardial infarction. 2. Lactic acidosis. 3. Acute diastolic congestive heart failure. 4. Diabetes mellitus. 5. Chronic encephalopathy, secondary to dementia. HOSPITAL COURSE: The patient admitted to telemetry floor. Serial troponin were followed. Cardiology consult was requested. The patient was placed on heparin drip and started on nitroglycerin, aspirin, and beta-blockers. Home medications were resumed. [employer] seen the patient and recommended to start anticoagulation with heparin as well as the antiplatelets and beta-yu. Antihypertensive medications were titrated. The patient was on beta-yu and GAURAV inhibitor. [employer] stated that the patient will need cardiac catheterization after heparin drip and transfer to the hospital with a higher level of care. TSH within normal limits. Current dose of levothyroxine was continued. EKG initial revealed right bundle-branch block, normal sinus rhythm, but possible inferior infarct. The patient had a cautious diuresis. Pro BNP trending down. Renal parameters were monitored. BUN trending down , likely element of chronic prerenal azotemia, probably secondary to diuresis. Supplemental oxygen provided as needed. Lipid panel was stable. Blood sugar was managed with sliding scale of insulin. Serial troponin demonstrated initially elevation trend and then decrease, last troponin negative. Per Cardiology, the patient needs cardiac catheterization after heparin drip discontinued. Hospital bed was secured at [facility] [place]. The patient was transferred for cardiac catheterization and further management. . DISCHARGE DIAGNOSES: 1. Acute myocardial infarction. 2. Acute diastolic congestive heart failure. 3. Diabetes mellitus. 4. Hypertension. 5. Lactic acidosis. 6. Chronic prerenal azotemia, likely secondary to diuresis. 7. Chronic encephalopathy, secondary to dementia. 8. Hypothyroidism. 9. Protein-calorie malnutrition noted albumin to be 2.9, needed further workup. When more stable to check pre-albumin level and will benefit from the dietary and nutritional evaluation. DISCHARGE MEDICATIONS: 1. Lasix 40 mg intravenous daily. 2. Lisinopril 20 mg daily. 3. Colace 100 mg twice a day. 4. Aspirin 81 mg daily. 5. Metoprolol 50 mg twice a day. 6. Norvasc 5 mg daily. 7. Levothyroxine 75 mg daily. DISCHARGE INSTRUCTIONS: The patient transferred to [facility] [place] for cardiac catheterization. Follow up with medical doctor and board liner operator at the facility. Arsh Natarajan M.D. I have been assigned to dictate discharge summary on this account and I was not involved in the patient's management. Cornelia Tellokrunal N.P. DR: TENNILLE JOB#: [id number] CC: CLEMENTE
== END 2016-06-27 00:28 | disposition short-term general hospital (02) | DRG 280 ==
LOC: EDBD 20:14 → EMR 20:49 → EDBEDREQ 21:26 → EDBEDREQSVC 21:36 → EDBEDREQ 22:19 → 2W 22:38
DX: I21.3 ST elevation (STEMI) myocardial infarction of unspecified site (principal); E43 Unspecified severe protein-calorie malnutrition; G93.40 Encephalopathy, unspecified; I50.33 Acute on chronic diastolic (congestive) heart failure; Z68.1 Body mass index [BMI] 19.9 or less, adult; E87.2 Acidosis; F05 Delirium due to known physiological condition; F03.90 Unspecified dementia, unspecified severity, without behavioral disturbance, psychotic disturbance, mood disturbance, and anxiety; E03.9 Hypothyroidism, unspecified; E11.9 Type 2 diabetes mellitus without complications; E78.5 Hyperlipidemia, unspecified; I45.10 Unspecified right bundle-branch block; E11.65 Type 2 diabetes mellitus with hyperglycemia; I11.0 Hypertensive heart disease with heart failure
CPT/HCPCS: 36415; 71010; 80048; 80053; 80061; 81003; 82550; 82553; 82962; 83605; 83735; 83880; 84443; 84484; 85025; 85730; 87040; 87081; 90732; 93005; 94664; 94760; J1815